=== PATIENT | female | born 1935 | race Caucasian/White ===

== ENCOUNTER 2018-09-17 14:47 | Emergency (ER) | payer MEDICARE, OTHER ==
[~2018-09-17] VITALS: Ht 167.6 cm; Wt 95.3 kg
--- NOTE | 2018-09-17 14:50 | NUR ---
Patient to ER bed 06 to gown for evaluation. Side rails up.
[2018-09-17 14:51] VITALS: BP_SYST 144
--- NOTE | 2018-09-17 15:00 | NUR ---
Pt was brought in by [facility] for pain to left shoulder s/p slip and fall. Pt denies KO but has a small laceration to bridge of nose. Pt states fell face first into the ground in her house. Pt denies pain to head or face, states glasses cut bridge of nose. Denies n/v but states has dizziness when getting up. Denies CP, SOB. No other injuries/complaints per pt or noted.
--- NOTE | 2018-09-17 15:03 | NUR ---
KERI Smith at bedside examining patient.
[2018-09-17] MEDS ORDERED: ONDANSETRON HCL 4 MG/2 ML VIAL IVP ONE ×2 (15:15→17:15)
[2018-09-17] MEDS ORDERED: MORPHINE 4 MG/ML INJ. SYRINGE IVP ONE ×2 (15:15→17:15)
[2018-09-17] MEDS ORDERED: MORPHINE 4 MG/ML INJ. SYRINGE IM ONE (15:45)
[2018-09-17] MEDS ORDERED: ONDANSETRON HCL 4 MG/2 ML VIAL IM ONE (15:45)
--- NOTE | 2018-09-17 15:54 | NUR ---
Medications were given to pt, tolerated well
--- NOTE | 2018-09-17 15:55 | NUR ---
Patient transported to radiology via gurney, accompanied by rad staff.
--- NOTE | 2018-09-17 16:25 | NUR ---
Pt returned from radiology
[2018-09-17] MEDS ORDERED: BACITRACIN 1 GM OINT TP ONE (16:30)
--- NOTE | 2018-09-17 16:40 | NUR ---
Oleg mirandafallon in ED - 09/17/18 at 1656 by [email or web address] Pt's abrasion on her nose was cleaned and dressed with a steri strip. Medication was not used due to allergy to Neosporin.
--- NOTE | 2018-09-17 16:40 | NUR ---
Pt's abrasion on her nose was cleaned and dressed with a steri strip. Bacitracin was not given due to pt stating allergy, Dr. Lind notified.
[2018-09-17] MEDS ORDERED: HYDROcodone/ACETAMIN 10-325 MG TAB PO ONE (17:15)
[2018-09-17] MEDS ORDERED: DIPHENHYDRAMINE INJ 50 MG/ML VIAL IVP ONE (17:15)
[2018-09-17] MEDS ORDERED: ONDANSETRON 4 MG ODT TAB PO ONE (17:15)
--- NOTE | 2018-09-17 17:16 | NUR ---
Pt given pain medication for 8/10 pain. Will continue to monitor pt condition prior to discharge.
[2018-09-17 17:39] VITALS: BP_SYST 147
--- NOTE | 2018-09-17 17:41 | NUR ---
Patient given written and verbal discharge instructions and verbalizes understanding. ER MD discussed with patient the results and treatment provided. Patient in stable condition. ID arm band removed. IV catheter removed intact and dressing applied, no active bleeding. Rx of Ibuprofen and [place] given. Patient educated on pain management and to follow up with PMD. Pain Scale 4/10. Pain medication was given PO before discharge. Doctor prescribed pain medication for pain management at home. Opportunity for questions provided and answered. Medication side effect fact sheet provided.
--- NOTE | 2018-09-17 17:41 | NUR ---
Note undone in EDM - 09/17/18 at 1754 by [email or web address] Patient given written and verbal discharge instructions and verbalizes understanding. ER MD discussed with patient the results and treatment provided. Patient in stable condition. ID arm band removed. IV catheter removed intact and dressing applied, no active bleeding. Rx of Ibuprofen and [place] given. Patient educated on pain management and to follow up with PMD. Pain Scale 4/10. Opportunity for questions provided and answered. Medication side effect fact sheet provided.
== END 2018-09-17 17:41 | disposition home or self-care (01) ==
LOC: SED 14:47
DX: S42.252A Displaced fracture of greater tuberosity of left humerus, initial encounter for closed fracture (principal); S42.212A Unspecified displaced fracture of surgical neck of left humerus, initial encounter for closed fracture; S00.31XA Abrasion of nose, initial encounter; I10 Essential (primary) hypertension; M19.90 Unspecified osteoarthritis, unspecified site; W19.XXXA Unspecified fall, initial encounter; Y93.89 Activity, other specified; Y92.89 Other specified places as the place of occurrence of the external cause; Y99.8 Other external cause status
CPT/HCPCS: 70450; 70486; 73060; 73090; 73110; 96372; 99284; J2270; J2405; Q0162

== ENCOUNTER 2018-11-12 10:39 | Emergency (ER) | payer MEDICARE ==
[~2018-11-12] VITALS: Ht 165.1 cm; Wt 95.3 kg
[2018-11-12 10:40] VITALS: BP_SYST 163
[2018-11-12] MEDS ORDERED: ASPIRIN 81 MG TAB.CHEW PO ONE (11:00)
[2018-11-12 11:28] LABS: BASOPHILS # (AUTO) 0.1 K/uL (0.0-0.2); EOSINOPHILS # (AUTO) 0.1 K/uL (0.0-0.4); EOSINOPHILS % (AUTO) 1.7 % (0.0-4.0); HEMATOCRIT 38.9 % (36-48); HEMOGLOBIN 12.6 g/dL (12.0-16.0); LYMPHOCYTES % (AUTO) 17.6 % (20.5-51.5); MEAN CORPUSCULAR HEMOGLOBIN 32 pg (27-31); MEAN CORPUSCULAR HGB CONC 32 % (32-36); MEAN CORPUSCULAR VOLUME 98 fL (79.0-98.0); MONOCYTES # (AUTO) 0.5 K/uL (0.0-1.0); MONOCYTES % (AUTO) 8.2 % (1.7-9.3); NEUTROPHILS # (AUTO) 3.9 K/uL (1.8-7.7); NEUTROPHILS % (AUTO) 71.5 % (40.0-70.0); PLATELET COUNT (AUTO) 296 K/uL (130-430); RED BLOOD CELL COUNT(AUTO) 3.99 MIL/uL (4.2-6.2); RED CELL DISTRIBUTION WIDTH 17.2 % (9.0-15.0); WHITE BLOOD COUNT (AUTO) 5.6 K/uL (4.8-10.8)
[2018-11-12 11:35] LABS: ANION GAP 6 (5-15); CALCIUM 8.8 mg/dL (8.4-11.0); CHLORIDE 99 mmol/L (98-107); CREATININE 0.52 mg/dL (0.55-1.30); GLUCOSE 86 mg/dL (70-99); SODIUM SERUM 135 mmol/L (136-145); UREA NITROGEN, BLOOD 8 mg/dL (8-21)
[2018-11-12 11:47] LABS: ALANINE AMINOTRANSFERASE 14 U/L (12-78); ALBUMIN 2.9 g/dL (3.4-4.8); ASPARTATE AMINOTRANSFERASE 20 U/L (10-37); TOTAL BILIRUBIN 0.7 mg/dL (0.0-1.0)
[2018-11-12 12:05] LABS: PROTHROMBIN TIME 10.3 SECS (9.5-12.5)
[2018-11-12] MEDS ORDERED: ONDANSETRON HCL 4 MG/2 ML VIAL IVP ONE (12:15)
[2018-11-12] MEDS ORDERED: fentaNYL CITRATE/PF 100 MCG/2 ML AMP IVP ONE (12:15)
[2018-11-12] MEDS ORDERED: IOHEXOL 350 mgI/mL, 150 ML INFUS..BTL IV ONE (13:24)
[2018-11-12] MEDS ORDERED: BACL10TA PO (15:07)
[2018-11-12] MEDS ORDERED: LIP10 PO (15:07)
[2018-11-12] MEDS ORDERED: HYDR-4272 PO (15:07)
[2018-11-12] MEDS ORDERED: AMLO2.5T2 PO (15:07)
[2018-11-12] MEDS ORDERED: POTA8TAB57 PO (15:07)
[2018-11-12] MEDS ORDERED: NITR50CA PO (15:07)
[2018-11-12] MEDS ORDERED: [UNRECOGNIZED DRUG - CODE] PO (15:07)
[2018-11-12] MEDS ORDERED: LORA1TAB PO (15:07)
[2018-11-12] MEDS ORDERED: ATEN50TA PO (15:07)
[2018-11-12] MEDS ORDERED: HYDR200T80 PO (15:07)
[2018-11-12 20:35] VITALS: BP_SYST 160
== END 2018-11-12 20:35 | disposition short-term general hospital (02) ==
LOC: SED 10:39
DX: R09.02 Hypoxemia (principal); R11.0 Nausea; E78.00 Pure hypercholesterolemia, unspecified; M19.90 Unspecified osteoarthritis, unspecified site; E11.9 Type 2 diabetes mellitus without complications; I10 Essential (primary) hypertension; Z79.899 Other long term (current) drug therapy
CPT/HCPCS: 36415; 36600; 71045; 71275; 76700; 80053; 82550; 82803; 83880; 84484; 85025; 85379; 85610; 85730; 93005; 96374; 96375; 99285; J2405; J3010; Q9967

== ENCOUNTER 2019-10-22 08:48 | Emergency (ER) | payer MEDICARE ==
[~2019-10-22] VITALS: Ht 167.6 cm; Wt 75.7 kg
[~2019-10-22 08:48] MED LIST: AMLO2.5T2 PO; ATEN50TA PO; BACL10TA PO; HYDR-4272 PO; HYDR200T80 PO; LIP10 PO; LORA1TAB PO; NITR50CA PO; POTA8TAB57 PO; [UNRECOGNIZED DRUG - CODE] PO
[2019-10-22] MEDS ORDERED: ACETAMINOPHEN 500 MG TABLET PO ONE (09:15)
[2019-10-22 09:21] VITALS: BP_SYST 144
[2019-10-22 11:26] VITALS: BP_SYST 129
== END 2019-10-22 11:30 | disposition home or self-care (01) ==
LOC: SED 08:48
DX: S30.0XXA Contusion of lower back and pelvis, initial encounter (principal); I10 Essential (primary) hypertension; E11.9 Type 2 diabetes mellitus without complications; E78.00 Pure hypercholesterolemia, unspecified; Z88.1 Allergy status to other antibiotic agents; Z88.8 Allergy status to other drugs, medicaments and biological substances; Z79.899 Other long term (current) drug therapy; W01.0XXA Fall on same level from slipping, tripping and stumbling without subsequent striking against object, initial encounter; Y93.89 Activity, other specified; Y92.89 Other specified places as the place of occurrence of the external cause; Y99.8 Other external cause status
CPT/HCPCS: 72100-TC; 72170-TC; 99283

== ENCOUNTER 2019-11-05 13:01 | Emergency (ER) | payer MEDICARE ==
[~2019-11-05] VITALS: Ht 167.6 cm; Wt 74.4 kg
[2019-11-05 13:08] VITALS: BP_SYST 153
[2019-11-05] MEDS ORDERED: traMADol HCL HCL 50 MG TABLET (ULTRAM) PO ONE (13:30)
[2019-11-05] MEDS ORDERED: CYCLOBENZAPRINE HCL 10 MG TABLET (FLEXERIL) PO ONE (13:30)
[2019-11-05 13:44] VITALS: BP_SYST 153
[2019-11-05] MEDS ORDERED: MORPHINE 4 MG/ML INJ. SYRINGE IVP ONE (16:30)
[2019-11-05] MEDS ORDERED: NACL 0.9% 1,000 ML IV ONE ×2 (16:30→18:15)
[2019-11-05 16:48] LABS: BASOPHILS # (AUTO) 0.1 K/uL (0.0-0.2); BASOPHILS % (AUTO) 0.8 % (0.0-2.0); EOSINOPHILS # (AUTO) 0.2 K/uL (0.0-0.4); EOSINOPHILS % (AUTO) 3.1 % (0.0-4.0); HEMATOCRIT 30.8 % (36-48); HEMOGLOBIN 10.4 g/dL (12.0-16.0); LYMPHOCYTES # (AUTO) 1.3 K/uL (1.0-5.5); LYMPHOCYTES % (AUTO) 20.3 % (20.5-51.5); MEAN CORPUSCULAR HEMOGLOBIN 32 pg (27-31); MEAN CORPUSCULAR HGB CONC 34 % (32-36); MEAN CORPUSCULAR VOLUME 94 fL (79.0-98.0); MONOCYTES # (AUTO) 0.3 K/uL (0.0-1.0); MONOCYTES % (AUTO) 4.7 % (1.7-9.3); NEUTROPHILS # (AUTO) 4.6 K/uL (1.8-7.7); NEUTROPHILS % (AUTO) 71.1 % (40.0-70.0); PLATELET COUNT (AUTO) 332 K/uL (130-430); RED BLOOD CELL COUNT(AUTO) 3.29 MIL/uL (4.2-6.2); RED CELL DISTRIBUTION WIDTH 16.1 % (9.0-15.0); WHITE BLOOD COUNT (AUTO) 6.5 K/uL (4.8-10.8)
[2019-11-05 17:37] LABS: ANION GAP 5 (5-15); CALCIUM 8.7 mg/dL (8.4-11.0); CHLORIDE 103 mmol/L (98-107); CREATININE 1.12 mg/dL (0.55-1.30); GLUCOSE 83 mg/dL (70-99); POTASSIUM 4.1 mmol/L (3.5-5.1); SODIUM SERUM 139 mmol/L (136-145); UREA NITROGEN, BLOOD 18 mg/dL (8-21)
[2019-11-05] MEDS ORDERED: CYAN100010 PO (17:56)
[2019-11-05 17:59] LABS: CLARITY/URINE TURBID (CLEAR); COLOR,URINE YELLOW (YELLOW); PH,URINE 8.5 (5.0-8.0)
[2019-11-05 18:00] LABS: BILIRUBIN,URINE NEGATIVE (NEGATIVE); BLOOD, URINE 3+ (NEGATIVE); GLUCOSE,URINE NEGATIVE (NEGATIVE); KETONES,URINE NEGATIVE (NEGATIVE); LEUKOCYTE ESTERASE ,URINE 3+ (NEGATIVE); NITRITE, URINE POSITIVE (NEGATIVE); PROTEIN URINE 3+ (NEGATIVE); UROBILINOGEN,URINE 0.2 (0.2-1.0)
[2019-11-05 18:03] LABS: ALANINE AMINOTRANSFERASE 21 U/L (12-78); ALBUMIN 2.8 g/dL (3.4-4.8); ASPARTATE AMINOTRANSFERASE 27 U/L (10-37); TOTAL BILIRUBIN 0.3 mg/dL (0.0-1.0)
[2019-11-05] MEDS ORDERED: AMI200 PO (18:13)
[2019-11-05] MEDS ORDERED: APIX2.5T PO (18:13)
[2019-11-05] MEDS ORDERED: MULT-1189 PO (18:13)
[2019-11-05] MEDS ORDERED: PANT20TA2 PO (18:13)
[2019-11-05] MEDS ORDERED: FLUT100D INH (18:13)
[2019-11-05] MEDS ORDERED: LEVO75TA7 PO (18:17)
[2019-11-05] MEDS ORDERED: METO25TA6 PO (18:19)
[2019-11-05 18:29] LABS: RBC,URINE 50-80 /HPF (0-3); WBC,URINE >100 /HPF (0-3)
[2019-11-05 18:30] LABS: BACTERIA,URINE MANY /HPF (None Seen); MUCUS,URINE None Seen /LPF (None Seen); URINE AMORPHOUS PHOSPHATES 2+ /HPF (None Seen)
[2019-11-05] MEDS ORDERED: NITROFURANTOIN MONOHYD/M-CRYST 100 MG CAPSULE PO ONE (18:30)
[2019-11-05] MEDS ORDERED: ONDANSETRON HCL 4 MG/2 ML VIAL IVP ONE (18:45)
[2019-11-05 19:34] VITALS: BP_SYST 132
== END 2019-11-05 19:32 | disposition short-term general hospital (02) ==
LOC: SED 13:01
DX: M48.56XA Collapsed vertebra, not elsewhere classified, lumbar region, initial encounter for fracture (principal); M48.54XA Collapsed vertebra, not elsewhere classified, thoracic region, initial encounter for fracture; N39.0 Urinary tract infection, site not specified; N13.30 Unspecified hydronephrosis; I48.91 Unspecified atrial fibrillation; I10 Essential (primary) hypertension; E11.9 Type 2 diabetes mellitus without complications; E78.00 Pure hypercholesterolemia, unspecified; Z88.1 Allergy status to other antibiotic agents; Z88.8 Allergy status to other drugs, medicaments and biological substances; Z79.899 Other long term (current) drug therapy
CPT/HCPCS: 36415; 72128; 72131; 80053; 81000; 83605; 85025; 87040; 87086; 87186; 96374; 96375; 99285; J2270; J2405; J7030

== ENCOUNTER 2021-04-13 21:41 | Emergency (ER) | payer MEDICARE ==
[~2021-04-13] VITALS: Ht 165.1 cm; Wt 64.4 kg
[~2021-04-13 21:41] MED LIST changes: +AMIO200T66 PO; -AMLO2.5T2 PO; +APIX2.5T PO; -ATEN50TA PO; -BACL10TA PO; +CYAN100010 PO; +FLUO10CA28 PO; +FLUT100D INH; +LEVO75TA7 PO; -LORA1TAB PO; +METO25TA6 PO; +MULT-1189 PO; -NITR50CA PO; +PANT20TA2 PO; -POTA8TAB57 PO; +POTA8TAB58 PO; -[UNRECOGNIZED DRUG - CODE] PO
[2021-04-13 21:50] VITALS: BP_SYST 156
[2021-04-13 23:38] LABS: BASOPHILS % (AUTO) 0.1 % (0.0-2.0); HEMATOCRIT 29.7 % (36-48); HEMOGLOBIN 9.7 g/dL (12.0-16.0); LYMPHOCYTES # (AUTO) 0.9 K/uL (1.0-5.5); LYMPHOCYTES % (AUTO) 7.3 % (20.5-51.5); MEAN CORPUSCULAR HEMOGLOBIN 31 pg (27-31); MEAN CORPUSCULAR HGB CONC 33 % (32-36); MEAN CORPUSCULAR VOLUME 95 fL (79.0-98.0); MONOCYTES # (AUTO) 0.5 K/uL (0.0-1.0); MONOCYTES % (AUTO) 3.9 % (1.7-9.3); NEUTROPHILS # (AUTO) 11.3 K/uL (1.8-7.7); NEUTROPHILS % (AUTO) 88.7 % (40.0-70.0); PLATELET COUNT (AUTO) 295 K/uL (130-430); RED BLOOD CELL COUNT(AUTO) 3.13 MIL/uL (4.2-6.2); RED CELL DISTRIBUTION WIDTH 15.1 % (9.0-15.0); WHITE BLOOD COUNT (AUTO) 12.7 K/uL (4.8-10.8)
[2021-04-13] MEDS: MORPHINE 2 MG/ML INJ. SYRINGE IVP ONE (23:43)
[2021-04-13] MEDS ORDERED: MORPHINE 2 MG/ML INJ. SYRINGE ONE (23:43)
[2021-04-13 23:45] LABS: ANION GAP 11 (5-15); CALCIUM 7.6 mg/dL (8.4-11.0); CHLORIDE 111 mmol/L (98-107); CREATININE 1.06 mg/dL (0.55-1.30); GLUCOSE 148 mg/dL (70-99); POTASSIUM 4.3 mmol/L (3.5-5.1); SODIUM SERUM 144 mmol/L (136-145); UREA NITROGEN, BLOOD 22 mg/dL (8-21)
[2021-04-13 23:48] LABS: INR 1.1 (0.8-1.2); PROTHROMBIN TIME 10.9 SECS (9.5-12.5)
[2021-04-13 23:52] LABS: ALANINE AMINOTRANSFERASE 14 U/L (12-78); ALBUMIN 2.4 g/dL (3.4-4.8); ASPARTATE AMINOTRANSFERASE 15 U/L (10-37); TOTAL BILIRUBIN 0.2 mg/dL (0.0-1.0)
[2021-04-13 23:54] VITALS: BP_SYST 142
== END 2021-04-13 23:52 | disposition short-term general hospital (02) ==
LOC: SED 21:41
DX: R94.31 Abnormal electrocardiogram [ECG] [EKG] (principal); M54.2 Cervicalgia; I10 Essential (primary) hypertension; E11.9 Type 2 diabetes mellitus without complications; I48.91 Unspecified atrial fibrillation; Z88.1 Allergy status to other antibiotic agents; Z88.8 Allergy status to other drugs, medicaments and biological substances; Z79.899 Other long term (current) drug therapy; W18.39XA Other fall on same level, initial encounter; Y93.89 Activity, other specified; Y92.89 Other specified places as the place of occurrence of the external cause; Y99.8 Other external cause status
CPT/HCPCS: 36415; 80053; 85025; 85610; 85730; 93005; 96374; 99284; J2270